=== PATIENT | male | born 1985 | race African-American/Black ===

== ENCOUNTER → 2022-04-03 | Outpatient (CLI) | payer SELFPAY ==
[2022-04-03 10:07] LABS: CHOLESTEROL 175 MG/DL (< 200); HDL CHOLESTEROL 37 MG/DL (40-60); TRIGLYCERIDES 145 MG/DL (<150); VLDL CHOLESTEROL 29 MG/DL (5-40)
[2022-04-03 11:55] LABS: BUN/CREATININE RATIO 14; CARBON DIOXIDE 20 MMOL/L (21-32); CHLORIDE 103 MMOL/L (98-107); GFR ESTIMATED 114; POTASSIUM 4.6 MMOL/L (3.6-5.0); SODIUM 140 MMOL/L (135-145)
[2022-04-03 11:56] LABS: ALANINE AMINOTRANSFERASE 34 U/L (0-55); ALBUMIN 4.6 GM/DL (3.2-4.5); ALKALINE PHOSPHATASE 80 U/L (40-136); BILIRUBIN,TOTAL 0.3 MG/DL (0.1-1.0); CALCIUM 9.6 MG/DL (8.5-10.1); GLUCOSE 99 MG/DL (70-105)
== END ==
LOC: LAB FS 07:24
PROVIDERS: ATTEND Registered Nurse Emergency
DX: Z00.00 Encounter for general adult medical examination without abnormal findings (principal); Z23 Encounter for immunization; R22.2 Localized swelling, mass and lump, trunk
CPT/HCPCS: 36415; 80053; 80061

== ENCOUNTER 2022-05-24 05:33 | Outpatient (CLI) | payer SELFPAY ==
[~2022-05-24] VITALS: Ht 193 cm; Wt 123.4 kg
[2022-05-24] MEDS ORDERED: NF-ADDXR30 PO (16:20)
[2022-05-24] MEDS ORDERED: GUAN1TAB21 PO (16:20)
[2022-05-24] MEDS ORDERED: LEVO5TAB28 PO (16:20)
== END 2022-05-25 15:52 | disposition home or self-care (01) ==
LOC: PREOP 05:33
PROVIDERS: ATTEND Surgery
DX: Z01.818 Encounter for other preprocedural examination (principal)

== ENCOUNTER 2022-05-31 08:17 | Day surgery (SDC) | payer OTHER ==
[2022-05-31] VITALS (10 sets, daily range): BP systolic 98–119; BP diastolic 58–76
[~2022-05-31] VITALS: Ht 193.1 cm; Wt 123.4 kg
[~2022-05-31 08:17] MED LIST: GUAN1TAB21 PO; LEVO5TAB28 PO; NF-ADDXR30 PO
[2022-05-31] MEDS ORDERED: ceFAZolin INJECTION 2,000 MG ONE (08:43)
[2022-05-31] MEDS ORDERED: BUP/EPI 0.5% 1:200,000 (MARCAINE) 10ML VIAL IJ ONE (08:49)
[2022-05-31] MEDS: LACTATED RINGERS 1,000 ML IV PRN ×2 (08:56→11:27)
[2022-05-31] MEDS ORDERED: ceFAZolin INJECTION 2,000 MG in NS (IVPB) 50 ML IV ONE (09:15)
--- NOTE | 2022-05-31 09:43 | Progress Note-Pre Operative ---
Pre-Operative Progress Note Date of Available H&P: May 10, 2022 Date H&P Reviewed: May 31, 2022 Time H&P Reviewed: 09:43 History & Physical: H&P Reviewed, Patient Examed, No changes noted Pre-Operative Diagnosis: back mass DAKOTA CUEVAS DO May 31, 2022 09:43
[2022-05-31] MEDS ORDERED: ONDANSETRON 4 MG/2 ML (SDV) Z0FRAN ONE (10:18)
[2022-05-31] MEDS ORDERED: MIDAZOLAM 2 MG/2 ML (VERSED) VIAL ONE (10:18)
[2022-05-31] MEDS ORDERED: fentaNYL INJ 100 MCG/2 ML AMP ONE (10:18)
[2022-05-31] MEDS ORDERED: proPOfol 200 MG/20 ML (DIPRIVAN) VIAL IV ONE ×2 (10:18→10:34)
[2022-05-31] MEDS ORDERED: LIDOCAINE PF 2% 5 ML (XYLOCAINE) VIAL ONE (10:18)
[2022-05-31] MEDS ORDERED: GLYCOPYRROLATE 0.2 MG/ML (ROBINUL) 2 ML VIAL ONE (10:31)
[2022-05-31] MEDS ORDERED: PHENYLEPHRINE 100 MCG/ML 10 ML (ANESTHESIA) SYR ONE (10:36)
[2022-05-31] MEDS ORDERED: SEVOFLURANE (ULTANE) 15 ML INHAL SOLN ONE (10:36)
[2022-05-31] MEDS: BUP/EPI 0.5% 1:200,000 (SENSORCAINE) 30 ML VIAL IJ ONE ×2 (10:57→11:06)
[2022-05-31] MEDS ORDERED: KETOROLAC 30 MG/ML VIAL ONE (11:06)
[2022-05-31] MEDS ORDERED: ONDANSETRON 4 MG/2 ML (SDV) Z0FRAN IVP PRN (11:30)
[2022-05-31] MEDS ORDERED: HYDROmorphone 2 MG/ML VIAL (DILAUDID) IV ONE (11:30)
[2022-05-31] MEDS ORDERED: HYDROcodone/APAP 5 MG/325 MG (LORTAB) TAB PO ONE (12:30)
[2022-05-31] MEDS ORDERED: HYDROcodone/APAP 5 MG/325 MG (LORTAB) TAB ONE (12:31)
[2022-05-31] MEDS ORDERED: ACHD5005 PO (12:31)
--- NOTE | 2022-05-31 12:34 | Discharge Inst-Simple/Standard ---
Discharge Inst-Standard Discharge Medications New, Converted or Re-Newed RX: Transmitted to Pharmacy Patient Instructions/Follow Up Plan of Care/Instructions/FU: 2 weeks Alfa Activity as Tolerated: No Discharge Diet: Regular Diet Other Inst to Patient Follow up Appt: Make appointment for 2 week. Instructions: No strenuous activity. May shower in 24 hours, no tub bath or soaking. Use incentive spirometer at home as directed. No Smoking Skin/Wound Care: Keep area clean and dry Symptoms to Report: Appetite Changes, Extremity Discoloration, Numbness/Tingling, Swelling Increased, Bleeding Excessive, Eyesight Changes, Pain Increased, Urine Color Change, Constipation(Persistent), Fever over 101 degree F, Pain/Pressure in chest, Urinating Difficulty, Cough Up/Vomit Blood, Heart Beat Irreg/Pounding, Pain/Pressure in jaw, Vaginal Bleeding Increase, Cramps in feet or legs, Lightheadedness, Pain/Pressure in shoulder, Diarrhea(Persistent), Memory Changes Suddenly, Questions/Concerns, Weight gain consecutive days, Dizziness/Fainting, Nausea/Vomiting, Shortness of Breath, Weight gain over 2 pounds If questions or concerns contact your physician Or seek help at emergency department. DAKOTA CUEVAS DO May 31, 2022 12:34
--- NOTE | 2022-06-01 00:14 | OPERATIVE REPORT ---
DATE OF SERVICE: 05/31/2022 PREOPERATIVE DIAGNOSIS: Back mass. POSTOPERATIVE DIAGNOSIS: Submuscular back mass. PROCEDURE: Excision of submuscular back mass 7.5 x 5.5 x 1.5 cm. SURGEON: Dakota Grimm DO ANESTHESIA: General. ESTIMATED BLOOD LOSS: Minimal. COMPLICATIONS: None. INDICATIONS: The patient is a 36-year-old male with a back mass, which causes pain and discomfort. He understands risks and benefits of procedure and wishes to proceed. Consent was signed in the chart. DESCRIPTION OF PROCEDURE: The patient was taken to the operating suite, placed in the right lateral recumbent position. A timeout was performed. Local anesthetic was infiltrated. A 15 blade scalpel was used to make a skin incision over the palpable mass. Cautery was used to dissect down through the subcutaneous tissues, which then encountered muscle, which was then divided bluntly. The muscles were encountering a large firm hard fatty mass. This was able to be dissected around all the way down to the posterior chest wall, which was continued to be dissected around until it was completely removed. The wounds were then irrigated and hemostasis was achieved. The muscles were then reapproximated using 3-0 Vicryl. The skin was then closed using jamison. The area was washed and dried and sterile bandage was applied. The patient tolerated the procedure well without any complications, taken to recovery room in stable condition. Job ID: [id number] DocumentID: [id number] Dictated Date: 05/31/2022 15:04:16 Junior Staff Accountant Date: 05/31/2022 23:15:01 Dictated By: DAKOTA GRIMM DO
--- NOTE | 2022-06-01 09:42 | Anesthesia-General Post-Op ---
General Patient Condition Mental Status/LOC: Same as Preop Cardiovascular: Satisfactory Nausea/Vomiting: Absent Respiratory: Satisfactory Pain: Controlled Complications: Absent Post Op Complications Complications None Follow Up Care/Instructions Patient Instructions None needed. Anesthesia/Patient Condition Patient Condition Patient is doing well, no complaints, stable vital signs, no apparent adverse anesthesia problems. No complications reported per nursing. D/C home per [facility] Criteria: Yes TERESA ANTON CRNA Jun 01, 2022 09:42
== END 2022-05-31 13:00 ==
LOC: SDC 08:17
PROVIDERS: ATTEND Surgery
DX: D21.6 Benign neoplasm of connective and other soft tissue of trunk, unspecified (principal); Z87.891 Personal history of nicotine dependence; E66.9 Obesity, unspecified; Z68.33 Body mass index [BMI] 33.0-33.9, adult
CPT/HCPCS: 87081